=== PATIENT | male | born 1975 | race Two or more races ===

== ENCOUNTER 2020-11-15 14:07 | Emergency (ER) | payer OTHER ==
[~2020-11-15] VITALS: Ht 180.3 cm; Wt 102.1 kg
[2020-11-15] MEDS ORDERED: CLONIDINE HCL 0.1 MG TABLET ONE (15:01)
[2020-11-15] MEDS: CLONIDINE HCL 0.1 MG TABLET PO ONE (15:04)
--- NOTE | 2020-11-15 15:06 | NUR ---
[id number] AND PRESLEY, INCUSTODY. OK TO BOOK. PT AAOX4, VSS. RR EVEN & UNLABORED. DENIES CP, DIZZINESS, N/V AT THIS TIME. PT SEEN & EVAL'D BY DR. OTOOLE. PRESLEY OFFICERS AT BS & WILL CONT TO MONITOR.
[2020-11-15] MEDS ORDERED: AMLO-212 PO (15:07)
--- NOTE | 2020-11-15 15:57 | NUR ---
Patient discharged with [employer] officers. Written and verbal after care instructions given. Patient verbalizes understanding of instruction. DR. OTOOLE AWARE OF PT'S BP, NAD NOTED UPON LEAVING ED.
[2020-11-15 15:59] VITALS: BP 164/99
== END 2020-11-15 16:00 ==
LOC: ER 14:08
DX: I10 Essential (primary) hypertension (principal); E11.9 Type 2 diabetes mellitus without complications; Z85.038 Personal history of other malignant neoplasm of large intestine; Z79.899 Other long term (current) drug therapy
CPT/HCPCS: 71045-TC; 82962-TC